=== PATIENT | female | born 1980 | race Two or more races ===

== ENCOUNTER 2018-01-16 05:52 | Day surgery (SDC) | payer SELFPAY ==
[2018-01-09 12:57] VITALS: BMI 25.0
[2018-01-16] MEDS ORDERED: Pregnancy Control Solution IV ONE ×2 (06:27→07:12)
[2018-01-16] MEDS ORDERED: ACETAMINOPHEN 500 MG TABLET (FP) ONE (07:06)
[2018-01-16] MEDS ORDERED: ACETAMINOPHEN 500 MG TABLET (FP) PO ONE (07:19)
[2018-01-16] MEDS ORDERED: MIDAZOLAM HCL 2 MG/2 ML SINGLE DOSE VIAL ONE (07:44)
[2018-01-16] MEDS ORDERED: SODIUM BICARBONATE 8.4% 50 MEQ/50 ML VIAL ONE (08:16)
[2018-01-16] MEDS ORDERED: LIDOCAINE HCL 2% (20ML MULTI-DOSE VIAL) NR ONE (08:16)
[2018-01-16] MEDS ORDERED: LIDOCAINE HCL 1%, 10 MG/ML (20ML VIAL) ONE (08:16)
[2018-01-16] MEDS ORDERED: EPINEPHrine/PF 1 MG/1 ML (1:1,000) AMPULE ONE (08:17)
[2018-01-16] MEDS ORDERED: ROCURONIUM BROMIDE 50 MG/5 ML VIAL ONE (08:18)
[2018-01-16] MEDS ORDERED: PROPOFOL 20 ML ONE ×4 (08:18→09:38)
[2018-01-16] MEDS ORDERED: SUCCINYLCHOLINE CHLORIDE 200 MG/10 ML VIAL ONE (08:18)
[2018-01-16] MEDS ORDERED: HYDROmorphone HCL/PF 1 MG/ML AMP ONE ×2 (08:25→09:13)
[2018-01-16] MEDS ORDERED: ceFAZolin SODIUM 1 GM VIAL ONE (08:26)
[2018-01-16] MEDS ORDERED: ONDANSETRON 4 MG/2 ML VIAL ONE ×3 (08:26→10:52)
[2018-01-16] MEDS ORDERED: DEXAMETHASONE SOD PHOSPHATE 4 MG/1 ML VIAL ONE ×2 (08:26→09:13)
[2018-01-16] MEDS ORDERED: BUPIVACAINE HCL/PF 2.5 MG/ML - 30 ML VIAL IJ ONE (09:10)
[2018-01-16] MEDS ORDERED: BUPIVACAINE HCL/PF 0.25% (2.5MG/ML) 10 ML VIAL IJ ONE (09:19)
[2018-01-16] MEDS ORDERED: ONDANSETRON 4 MG/2 ML VIAL IVPUSH PRN (10:33)
[2018-01-16] MEDS ORDERED: oxyCODONE HCL 5 MG TABLET PO PRN (10:33)
[2018-01-16] MEDS ORDERED: oxyCODONE HCL 5 MG TABLET PO ONE (10:36)
[2018-01-16] MEDS ORDERED: KETOROLAC TROMETHAMINE 30 MG/1 ML VIAL IVPUSH ONE (10:39)
[2018-01-16] MEDS ORDERED: LACTATED RINGERS SOLUTION 1,000 ML IV SCH (10:45)
[2018-01-16] MEDS ORDERED: KETOROLAC TROMETHAMINE 30 MG/1 ML VIAL ONE (10:45)
[2018-01-16 11:12] VITALS: TEMP 98.4
[2018-01-16 15:10] VITALS: BP 120/74; PULSE 84
== END 2018-01-16 14:45 | disposition home or self-care (01) ==
LOC: FASU 05:52
PROVIDERS: ATTEND Plastic Surgery
CPT/HCPCS: 84703; 94760